=== PATIENT | female | born 1990 | race Caucasian/White ===

== ENCOUNTER → 2016-07-14 | Outpatient (CLI) | payer OTHER ==
[~2016-07-14] MED LIST: LEVOIUD; OXYC-57 PO; SERT50TA PO
[2016-07-14 13:18] LABS: BASO % 0.3 %; BASO ABS # 0.02 K/uL (0-0.2); COMPLETE YES; EOS % 4.9 %; HEMATOCRIT 36.9 % (37-47); IG% 0.2 %; LYMPH % 31.7 %; LYMPH ABS # 1.86 K/uL (1.2-3.4); MEAN CELL VOLUME 77.7 fL (80-100); MEAN CORPUSCULAR HEMOGLOBIN 26.1 pg (25-34); MEAN CORPUSCULAR HGB CONC 33.6 g/dl (32-36); MEAN PLATELET VOLUME 11.6 fL (7.4-10.4); MONO % 9.7 %; NEUT % 53.2 %; PLATELET COUNT 229 K/uL (130-400); RED BLOOD COUNT 4.75 M/uL (4.2-5.4); WHITE BLOOD COUNT 5.86 K/uL (4.8-10.8)
[2016-07-14 14:29] LABS: BLOOD UREA NITROGEN 11 mg/dl (7-18); BUN/CREATININE RATIO 16.3 (10-20); CALCIUM 9.4 mg/dl (8.5-10.1); CARBON DIOXIDE 24 mmol/L (21-32); CHLORIDE 104 mmol/L (98-107); CREATININE 0.68 mg/dl (0.60-1.20); GLUCOSE 101 mg/dl (70-99); POTASSIUM 3.9 mmol/L (3.5-5.1); SODIUM 139 mmol/L (136-145)
== END | disposition home or self-care (01) ==
LOC: C.LAB1850 12:44
PROVIDERS: ATTEND Surgery
DX: Z01.812 Encounter for preprocedural laboratory examination (principal); K43.9 Ventral hernia without obstruction or gangrene

== ENCOUNTER → 2016-07-15 | Outpatient (CLI) | payer OTHER ==
[~2016-07-15] MED LIST changes: -LEVOIUD
== END | disposition home or self-care (01) ==
LOC: C.CPL 16:42
PROVIDERS: ATTEND Surgery
DX: Z01.810 Encounter for preprocedural cardiovascular examination (principal)

== ENCOUNTER 2016-07-17 11:09 | Day surgery (SDC) | payer OTHER ==
[2016-07-14 16:27] VITALS: BMI 43.0
[~2016-07-17] VITALS: Ht 154.9 cm; Wt 102.7 kg
[~2016-07-17 11:09] MED LIST changes: +LACTATED RINGER'S 1000ML 1,000 ML IV SCH; -OXYC-57 PO
[2016-07-17 11:34] VITALS: BP 140/73; PULSE 76; TEMP 36.6; O2SAT 97; Ht 154.9 cm; Wt 102.7 kg
[2016-07-17] MEDS ORDERED: LIDOCAINE HCL 2% 2 ML VIAL (20MG/ML) ONE (12:28)
[2016-07-17] MEDS ORDERED: GLYCOPYRROLATE INJ 0.2 MG/ML VIAL ONE (12:28)
[2016-07-17] MEDS ORDERED: DEXAMETHASONE SOD INJ 4 MG/ML VIAL ONE (12:28)
[2016-07-17] MEDS ORDERED: NEOSTIGMINE METHYLSULFATE 5 MG/5 ML SYR ONE (12:28)
[2016-07-17] MEDS ORDERED: PROPOFOL IV EMULSION 10 MG/ML 20 ML VIAL IV ONE ×2 (12:28→12:30)
[2016-07-17] MEDS ORDERED: PHENYLEPHRINE HCL INJ 10 MG/ML VIAL ONE (12:28)
[2016-07-17] MEDS ORDERED: SUCCINYLCHOLINE CHLORIDE 20 MG/ML 10 ML VIAL IV ONE (12:28)
[2016-07-17] MEDS ORDERED: ROCURONIUM BROMIDE 10 MG/ML 5 ML VIAL ONE (12:28)
[2016-07-17] MEDS ORDERED: EpHEDrine SULFATE INJ 50 MG/ML AMP ONE (12:28)
[2016-07-17] MEDS ORDERED: ONDANSETRON INJ 2 MG/ML 2 ML VIAL ONE ×2 (12:28→13:47)
[2016-07-17] MEDS ORDERED: FENTANYL CITRATE INJ 50 MCG/1 ML 2 ML VIAL ONE (12:29)
[2016-07-17] MEDS ORDERED: MIDAZOLAM HCL 1 MG/ML 2ML VIAL ONE (12:29)
[2016-07-17] MEDS ORDERED: SCOPOLAMINE 1.5 MG TDSY TD ONE (12:43)
[2016-07-17] MEDS ORDERED: LACTATED RINGER'S 1000ML 1,000 ML IV PRN (12:47)
[2016-07-17] MEDS ORDERED: OXYC-57 PO (12:51)
--- NOTE | 2016-07-17 12:52 | Discharge Instructions ---
Discharge Instructions Visit Reason for Visit: Supraumbilical Hernia Discharge Discharge Diagnosis / Problem: laparoscopic hernia repair with mesh Discharge Goals Goal(s): Decrease discomfort Activity Recommendations Activity Limitations: per Instructions/Follow-up section Lifting Limitations: no more than 10 pounds Shower/Bathe: tomorrow Driving or Machine Use: resume 3 days after discharge Anesthesia . Post Anesthesia Instructions: If you have had General Anesthesia or IV Sedation: * Do not drive today. * Resume driving when surgeon permits. * Do not make important decisions or sign legal documents today. * Call surgeon for: 1. Temperature elevations greater than 101 degrees F. 2. Uncontrollable pain. 3. Excessive bleeding. 4. Persistent nausea and vomiting. 5. Medication intolerance (nausea, vomiting or rash). * For nausea and vomiting use only clear liquids such as: tea, soda, bouillon until nausea subsides, then gradually increase diet as tolerated. * If you have any concerns or questions, call your surgeon's office. If physician is unavailable and it is an emergency, call 911 or go to the nearest emergency room. . Instructions / Follow-Up Instructions / Follow-Up Dr. Ramírez in 1 week, call [phone] if you do not already have an appt Diet Recommendations Recommended Home Diet: no limitations Pending Studies Studies pending at discharge: no Medical Emergencies . Who to Call and When: Medical Emergencies: If at any time you feel your situation is an emergency, please call 911 immediately. . Non-Emergent Contact Non-Emergency issues call your: Surgeon Call Non-Emergent contact if: you have a fever, temperature is above 101.5, your pain is not controlled, your pain is worsening, wound has increased redness , wound has increased pain . . "Provider Documentation" section prepared by Kadeem Dean.
[2016-07-17] MEDS ORDERED: DiphenhydrAMINE HCL 50 MG/ML VIAL IV PRN (13:00)
[2016-07-17] MEDS ORDERED: ONDANSETRON INJ 2 MG/ML 2 ML VIAL IV PRN ×2 (13:00→15:00)
--- NOTE | 2016-07-17 13:23 | History & Physical Bridge Note ---
H&P Re-Evaluation Bridge Note: I have examined the patient, reviewed the History & Physical and in the interval since the performance of the History & Physical I have noted the following changes of clinical significance: No changes noted SO at bedside pt marked
[2016-07-17] MEDS ORDERED: RANITIDINE HCL 25 MG/ML INJ ONE (13:52)
[2016-07-17] MEDS ORDERED: DiphenhydrAMINE HCL 50 MG/ML VIAL ONE (13:52)
[2016-07-17] MEDS ORDERED: METOCLOPRAMIDE HCL INJ 5 MG/ML 2 ML VIAL ONE (13:52)
[2016-07-17] MEDS ORDERED: CEFAZOLIN SOD 1 GM VIAL ONE (14:03)
[2016-07-17] MEDS ORDERED: BACITRACIN 50000 UNIT VIAL IR ONE (14:11)
[2016-07-17] MEDS ORDERED: BUPIVACAINE 0.5 % 5 MG/1 ML MPF 30ML VIAL INJ ONE (14:44)
[2016-07-17] MEDS ORDERED: LACTATED RINGER'S 1000ML 1,000 ML IV SCH (14:49)
--- NOTE | 2016-07-17 14:54 | [facility] Post Operative Brief Note ---
Immediate Operative Summary Operative Date Jul 17, 2016. Pre-Operative Diagnosis Recurrent Umbilical hernia Post-Operative Diagnosis Save Procedure(s) Performed Laparoscopic Supraumbilical Hernia Repair, With Mesh(10cm surgimesh) Surgeon Dr Ramírez [employer] Drafter Surgeon(s) Kadeem Dean PA-C Estimated Blood Loss 5ml Findings recurrent supraumbilical hernia Specimens None
[2016-07-17] MEDS ORDERED: MoRPHine SULFATE 4 MG/ML 1 ML CARP\\VIAL IV PRN (15:00)
[2016-07-17] MEDS ORDERED: OXYCODONE/ACETAMINOPHEN 5-325 TAB PO PRN (15:00)
[2016-07-17] MEDS: FENTANYL CITRATE INJ 50 MCG/1 ML 2 ML VIAL IV PRN ×2 (15:18→15:23)
[2016-07-17] MEDS: HYDROmorphone INJ 1 MG/ML SYR IV PRN ×2 (15:28→15:33)
--- NOTE | 2016-07-17 16:08 | Anesthesiology Progress Note ---
Anesthesia Post Op Note Date & Time Jul 17, 2016 at 16:08 Vital Signs Pain Intensity: 2 Vital Signs Past 12 Hours Date Time Temp Pulse Resp B/P Pulse Ox O2 Delivery O2 Flow Rate FiO2 07/17/16 15:58 96 18 125/79 100 07/17/16 15:58 94 18 07/17/16 15:53 74 20 07/17/16 15:53 72 20 132/66 91 07/17/16 15:48 81 17 07/17/16 15:48 79 17 151/95 91 07/17/16 15:43 95 22 137/75 94 07/17/16 15:43 95 22 07/17/16 15:42 151/75 07/17/16 15:41 165/100 07/17/16 15:40 36.3 99 18 137/75 95 Room Air 07/17/16 15:39 170/98 07/17/16 15:38 111 21 07/17/16 15:38 106 21 93 07/17/16 15:37 87 20 95 07/17/16 15:37 90 20 07/17/16 15:33 133/66 07/17/16 15:32 75 16 98 07/17/16 15:32 77 16 07/17/16 15:29 135/70 07/17/16 15:27 86 17 98 07/17/16 15:27 82 17 07/17/16 15:26 82 18 07/17/16 15:26 84 18 100 07/17/16 15:26 84 18 100 07/17/16 15:26 82 18 07/17/16 15:23 126/96 07/17/16 15:23 126/96 07/17/16 15:21 75 17 07/17/16 15:21 77 17 100 07/17/16 15:21 77 17 100 07/17/16 15:21 75 17 07/17/16 15:18 120/82 07/17/16 15:18 120/82 07/17/16 15:16 100 21 100 07/17/16 15:16 98 21 07/17/16 15:16 100 21 100 07/17/16 15:16 98 21 07/17/16 15:13 143/92 07/17/16 15:13 143/92 07/17/16 15:11 95 28 07/17/16 15:11 95 28 07/17/16 15:11 92 28 100 07/17/16 15:11 92 28 100 07/17/16 15:09 129/57 07/17/16 15:09 129/57 07/17/16 15:06 106 14 07/17/16 15:06 107 14 100 07/17/16 15:06 36.3 108 18 147/79 100 Mask 10 07/17/16 15:06 107 14 100 07/17/16 15:06 106 14 07/17/16 11:34 36.6 76 16 140/73 97 Room Air Notes Mental Status: alert / awake / arousable, participated in evaluation Pt Amnestic to Procedure: Yes Nausea / Vomiting: adequately controlled Pain: adequately controlled Airway Patency, RR, SpO2: stable & adequate BP & HR: stable & adequate Hydration State: stable & adequate Anesthetic Complications: no major complications apparent
[2016-07-17 16:10] VITALS: BP 127/70; PULSE 98; TEMP 36.6; O2SAT 95
[2016-07-17 16:40] VITALS: BP 123/67; PULSE 98; TEMP 36.8; O2SAT 97
--- NOTE | 2016-07-17 16:59 | OPERATIVE REPORT ---
DATE OF OPERATION: 07/17/2016 SURGEON: Dr. Ramírez. SUPERVISOR INSPECTING: Ryan Dean PA-C. PREOPERATIVE DIAGNOSIS: Recurrent supraumbilical hernia. POSTOPERATIVE DIAGNOSIS: Same. PROCEDURE: Repair of supraumbilical hernia with a 10 cm Surgimesh laparoscopically. SUMMARY: The patient was brought into the operating room theater. The abdomen was prepped with Betadine scrub and solution and properly draped. Systemic antibiotics were given. The patient had had a previous hernia repair approximately a year ago by myself which had about a 1 cm or so defect. I primarily closed it with PDS interrupted suture and apparently she recurred recently after some really daily routines are quite strenuous for her. At this point, I saw her in the office and looked like she had a small recurrent right at the supraumbilical area where we had made the previous open incision. At this point I would like to do laparoscopically since she is slightly obese, did not know if there was one defect or rather than go anteriorly I thought she would be just better laparoscopically. Therefore, we made a small incision above the umbilicus below the midline incision from before, sufficient enough to place a Veress needle, followed by CO2, followed by a 5 mm trocar. Point of entry inspected and no injury identified. Then under direct visualization, I placed a 5 mm right upper quadrant port and 5 mm left upper quadrant port with preemptive local analgesia 1% Xylocaine with epinephrine. With these 2 ports we were able to see the dimpling of almost the falciform ligament above the umbilical and into the hernia defect. We were able to incise this fatty tissue around the muscular and fascial planes and able to reduce. Our her previous repair, we could see the suture still intact, but some small opening that was about a centimeter or so in size as it was preoperatively a year ago. At this point, we elected then to score more in the musculofascial plane and I generously placed a 10 cm Surgimesh through the umbilical opening after we positioned the 5 mm trocar in the left lower quadrant. Therefore, we had 2 trocars in the left side and one on the right. With these trocars we had a 0 Vicryl suture as a stay suture. We initially went into the abdomen. We tied this with pneumoperitoneum. Then we elevated the mesh by placing a suture passer, which was above almost the midline in her previous hernia repair. We were able then to elevate and bring out the nylon suture in that area and elevated the mesh. With the staplers and absorbable tackers we were then went all they way circumferentially to secure well beyond the defect. Once this had been performed, we checked for hemostasis and appeared satisfactory. I did put 2 sutures of #2 nylon passing through the abdominal wall beyond the mesh and 1 through the mesh that anchored the north and south positions. It appeared to be adequate. We then removed all the individual trocars. Wounds were closed with 4-0 Monocryl. Steri-Strips applied. The procedure was tolerated well by the patient. Minimal blood loss. The patient was taken to the recovery room in good condition. I attest to the content of the Intraoperative Record and any orders documented therein. Any exceptions are noted below. MANDA
== END 2016-07-17 16:59 | disposition home or self-care (01) ==
LOC: C.ACU 11:09
PROVIDERS: ATTEND Surgery
DX: K42.9 Umbilical hernia without obstruction or gangrene (principal); R87.612 Low grade squamous intraepithelial lesion on cytologic smear of cervix (LGSIL)

== ENCOUNTER → 2016-12-10 | Outpatient (CLI) | payer OTHER ==
[~2016-12-10] MED LIST changes: -LACTATED RINGER'S 1000ML 1,000 ML IV SCH; +OXYC-57 PO
== END | disposition home or self-care (01) ==
LOC: C.PAPS 12:45
PROVIDERS: ATTEND Obstetrics & Gynecology
DX: Z01.419 Encounter for gynecological examination (general) (routine) without abnormal findings (principal); R87.612 Low grade squamous intraepithelial lesion on cytologic smear of cervix (LGSIL)

== ENCOUNTER → 2017-06-11 | Outpatient (CLI) | payer OTHER ==
[~2017-06-11] MED LIST changes: -OXYC-57 PO
== END | disposition home or self-care (01) ==
LOC: C.PAPS 15:39
PROVIDERS: ATTEND Obstetrics & Gynecology
DX: R87.610 Atypical squamous cells of undetermined significance on cytologic smear of cervix (ASC-US) (principal)

== ENCOUNTER → 2018-01-27 | Outpatient (CLI) | payer OTHER | END | disposition home or self-care (01) | LOC: C.PAPS 16:11 | PROVIDERS: ATTEND Obstetrics & Gynecology | DX: Z12.4 Encounter for screening for malignant neoplasm of cervix (principal); Z11.51 Encounter for screening for human papillomavirus (HPV); R87.610 Atypical squamous cells of undetermined significance on cytologic smear of cervix (ASC-US) ==